=== PATIENT | male | born 1980 | race Two or more races ===

== ENCOUNTER 2024-09-28 15:58 | Emergency (ER) | payer OTHER ==
[~2024-09-28] VITALS: Ht 182.9 cm; Wt 127.6 kg
[2024-09-28] MEDS: ONDANSETRON ODT 4 MG TAB PO ONE (16:45)
[2024-09-28] MEDS: KETOROLAC TROMETH 30 MG/ML 1ML VIAL IM ONE (16:46)
--- NOTE | 2024-09-28 17:01 | DVH ---
Procedure: CT CT AB PEL WO CON-NO ORAL OR IV 09/28/2024 04:16 PM Indication: lower abd pain Comparison Study: None available at time of dictation. Technique: Axial images were obtained and reformatted in coronal and sagittal planes. All CT scans at this medical facility are performed using dose modulation techniques as appropriate t o a performed exam including the following: Automated exposure control was utilized; Adjustment of th e MA And/or KV according to patient size; And use of iterative reconstruction technique. CT Dose: CTDI volume is 23 mGy. Dose-length product is 1517 mGy*cm FINDINGS: Lower Chest: Unremarkable. Hepatobiliary: Hepatomegaly and hepatic steatosis. Spleen: Mild splenomegaly, 12.9 cm in craniocaudal. Pancreas: Unremarkable. Adrenal Glands: Unremarkable. tract: The kidneys are normal in size bilaterally without hydronephrosis or nephrolithiasis. Mild circumferential mural thickening of urinary bladder noted. GI tract: The stomach is grossly normal in appearance. No evidence of small bowel obstruction. Sigmoi d colon diverticulosis. Circumferential mural thickening of sigmoid colon noted with moderate adjace nt fat stranding. Small amount of free fluid is seen in the pelvis. No free intraperitoneal air. Th e appendix is normal. Lymphatics: No mesenteric, retroperitoneal or periportal lymphadenopathy. Vasculature: The abdominal aorta is normal in in caliber. Pelvic Organs: Unremarkable Bones/soft tissues: No acute abnormality. Other: None. IMPRESSION: 1. Sigmoid colitis moderate surrounding inflammation. There is sigmoid diverticulosis but no single i nflamed diverticulum is seen to suggest diverticulitis. Correlate clinically. Small amount of free fl uid is seen in the pelvis. No free intraperitoneal air. 2. Mild circumferential mural thickening of the urinary bladder that could be at least in part due to lack of distention or reflect underlying cystitis. Correlate with urinalysis. 3. Hepatomegaly and hepatic steatosis. 4. Mild splenomegaly.
[2024-09-28 17:07] LABS: Basophils # (auto) 0 10 ^3/uL (0-0.2); Basophils % (auto) 0.2 % (0.0-2.0); Eosinophils # (auto) 0 10 ^3/uL (0-0.8); Eosinophils % (auto) 0.3 % (0.0-7.0); Hematocrit 47.3 % (41.0-53.0); Hemoglobin 16.2 g/dL (13.5-17.5); Lymphocytes # (auto) 2.5 10 ^3/uL (0.4-5.4); Lymphocytes % (auto) 14.7 % (10.0-50.0); Mean Corpuscular Hemoglobin 30.8 pg (28.0-32.0); Mean Corpuscular Hgb Conc. 34.4 g/dL (32.0-36.0); Mean Corpuscular Volume 89.8 fL (80.0-100.0); Monocytes # (auto) 0.8 10 ^3/uL (0-1.3); Monocytes % (auto) 4.7 % (0.0-12.0); Neutrophils # (auto) 13.4 10 ^3/uL (1.6-8.6); Neutrophils % (auto) 80.1 % (37.0-80.0); Nucleated Red Blood Cells % 0.1 %; Platelet Count (auto) 255 10^3/uL (140-450); Red Blood Cells 5.27 10^6/uL (4.5-5.90); Red Cell Distribution Width 12.9 % (11.8-14.3); White Blood Cell 16.7 10^3/uL (4.4-10.8)
[2024-09-28 17:34] LABS: Albumin 4.4 g/dL (3.2-4.8); Alkaline Phosphatase 56 U/L (46-116); Anion Gap 10 (5-15); Aspartate Aminotransferase 27 U/L (13-40); BUN/Creatinine Ratio 12.2 (10.0-20.0); Blood Urea Nitrogen 10 mg/dL (9-23); Carbon Dioxide 26 mmol/L (20-31); Chloride 102 mmol/L (98-107); Lipase 30 U/L (12-53); Potassium 3.9 mmol/L (3.5-5.1); Sodium 138 mmol/L (136-145)
[2024-09-28 17:35] LABS: Total Protein 7.1 g/dL (5.7-8.2)
[2024-09-28 17:38] LABS: Alanine Aminotransferase 44 U/L (7-40); Bilirubin, Total 1.4 mg/dL (0.2-1.0); Glucose 137 mg/dL (74-106)
--- NOTE | 2024-09-28 19:46 | ED.PDOC ---
GI ASSESSMENT HPI Comments 44-year-old male complaining of lower abdominal pain which started this morning. States approximate 2 hours ago he started having more intense sharp pain across his lower abdomen. No vomiting no diarrhea. Nothing makes it better, nothing makes it worse. No fevers. Chief Complaint: Abdominal Pain Time Seen by MD: 16:09 Primary Care Provider: ALEKSANDRA Hernandez Notes: Nurses Notes Allergies: Coded Allergies: NO KNOWN ALLERGIES (Unverified , 09/28/24) Information Source: Patient Mode of Arrival: Ambulatory Past Medical History PAST MEDICAL HISTORY: Denies Surgical History: Denies all surgeries Constitutional: denies: chills, diaphoresis, fatigue, fever, malaise, sweats, weakness, others EENTM: denies: blurred vision, double vision, ear bleeding, ear discharge, ear drainage, ear pain, ear ringing, eye pain, eye redness, hearing loss, mouth pain, mouth swelling, nasal discharge, nose bleeding, nose congestion, nose pain, photophobia, tearing, throat pain, throat swelling, voice changes, others Respiratory: denies: cough, hemoptysis, orthopnea, SOB at rest, shortness of breath, SOB with excertion, stridor, wheezing, others Cardiovascular: denies: chest pain, dizzy spells, diaphoresis, Dyspnea on exertion, edema, irregular heart beat, left arm pain, lightheadedness, palpitations, PND, syncope, others Gastrointestinal: reports: abdominal pain, nausea; denies: abdomen distended, blood streaked bowels, constipated, diarrhea, dysphagia, difficulty swallowing, hematemesis, melena, poor appetite, poor fluid intake, rectal bleeding, rectal pain, vomiting, others Genitourinary: denies: burning, dysuria, flank pain, frequency, hematuria, incontinence, penile discharge, penile sore, pain, testicle pain, testicle swelling, urgency, others Neurological: denies: dizziness, fainting, headache, left sided numbness, left sided weakness, numbness, paresthesia, pre-existing deficit, right sided numbness, right sided weakness, seizure, speech problems, tingling, tremors, weakness, others Musculoskeletal: denies: back pain, gout, joint pain, joint swelling, muscle pain, muscle stiffness, neck pain, others Integumetry: denies: bruises, change in color, change in hair/nails, dryness, laceration, lesions, lumps, rash, wounds, others Allergic/Immunocompromised: denies: Difficulty Healing, Frequent Infections, Hives, Itching, others Hematologic/Lymphatic: denies: anemia, blood clots, easy bleeding, easy bruising, swollen glands, others Physical Exam General Appearance: No Apparent Distress, Normal HEENT: Normal ENT Inspection, Pharynx Normal, TMs Normal Neck: Full Range of Motion, Non-Tender, Normal, Normal Inspection Respiratory: Chest Non-Tender, Lungs Clear, No Accessory Muscle Use, No Respiratory Distress, Normal Breath Sounds Cardiovascular: No Edema, No JVD, No Murmur, No Gallop, Normal Peripheral Pulses, Regular Rate/Rhythm Breast Exam: Deferred Gastrointestinal: Diffuse (Diffuse lower abdominal tenderness), No Organomegaly, Normal Bowel Sounds, Soft Genitalia: Deferred Pelvic: Deferred Rectal: Deferred Extremities: No calf tenderness, Normal capillary refill, Normal inspection, Normal range of motion, Non-tender, No pedal edema Musculoskeletal : Apperance: Normal Neurologic: Alert, mail distributor II-XII nml as Tested, No Motor Deficits, Normal Affect, Normal Mood, No Sensory Deficits Cerebellar Function: Normal Reflexes: Normal Skin: Dry, Normal Color, Warm Lymphatic: No Adenopathy Was a procedure done? Was a procedure done?: No GI differential Dx Differential Diagnosis: Appendicitis, Angina/MO, Bowel Obstruction, Gastritis/PUD, Gastroenteritis, GI hemorrhage X-Ray, Labs, Meds, VS Vital Signs Date Time Temp Pulse Resp B/P (MAP) Pulse Ox O2 Delivery O2 Flow Rate FiO2 09/28/24 16:54 98.9 100 18 146/92 (110) 98 98.9 09/28/24 16:54 100 18 98 Room Air 09/28/24 16:10 97.0 99 18 142/83 (102) 97 Lab Test 09/28/24 16:42 Range/Units White Blood Count 16.7 H 4.4-10.8 10^3/uL Red Blood Count 5.27 4.5-5.90 10^6/uL Hemoglobin 16.2 13.5-17.5 g/dL Hematocrit 47.3 41.0-53.0 % Mean Corpuscular Volume 89.8 80.0-100.0 fL Mean Corpuscular Hemoglobin 30.8 28.0-32.0 pg Mean Corpuscular Hemoglobin Concent 34.4 32.0-36.0 g/dL Red Cell Distribution Width 12.9 11.8-14.3 % Platelet Count 255 140-450 10^3/uL Mean Platelet Volume 7.7 6.9-10.8 fL Neutrophils (%) (Auto) 80.1 H 37.0-80.0 % Lymphocytes (%) (Auto) 14.7 10.0-50.0 % Monocytes (%) (Auto) 4.7 0.0-12.0 % Eosinophils (%) (Auto) 0.3 0.0-7.0 % Basophils (%) (Auto) 0.2 0.0-2.0 % Neutrophils # (Auto) 13.4 H 1.6-8.6 10 ^3/uL Lymphocytes # (Auto) 2.5 0.4-5.4 10 ^3/uL Monocytes # (Auto) 0.8 0-1.3 10 ^3/uL Eosinophils # (Auto) 0 0-0.8 10 ^3/uL Basophils # (Auto) 0 0-0.2 10 ^3/uL Nucleated Red Blood Cells 0.1 % Sodium Level 138 136-145 mmol/L Potassium Level 3.9 3.5-5.1 mmol/L Chloride Level 102 98-107 mmol/L Carbon Dioxide Level 26 20-31 mmol/L Anion Gap 10 5-15 Blood Urea Nitrogen 10 9-23 mg/dL Creatinine 0.82 0.700-1.30 mg/dL Glomerular Filtration Rate Calc 112 >90 mL/min BUN/Creatinine Ratio 12.2 10.0-20.0 Serum Glucose 137 H 74-106 mg/dL Calcium Level 10.0 8.7-10.4 mg/dL Total Bilirubin 1.4 H 0.2-1.0 mg/dL Aspartate Amino Transferase (AST) 27 13-40 U/L Alanine Aminotransferase (ALT) 44 H 7-40 U/L Alkaline Phosphatase 56 46-116 U/L Total Protein 7.1 5.7-8.2 g/dL Albumin 4.4 3.2-4.8 g/dL Lipase 30 12-53 U/L Current Medications Medications (Trade) Dose Ordered Sig/Yolanda Route Start Time Stop Time Status Last Admin Ketorolac Tromethamine (Toradol Injection) 30 mg ONCE ONCE IM 09/28/24 16:15 09/28/24 16:16 DC 09/28/24 16:46 Ondansetron HCl (Zofran Po) 4 mg ONCE ONCE PO 09/28/24 16:15 09/28/24 16:16 DC 09/28/24 16:45 X-Ray, Labs, Meds, VS Comment Imaging: X-rays and CT scans were reviewed and interpreted by this provider, diverticulosis present on CT scan. Pending radiology review. Laboratory: Labs reviewed and interpreted by this provider. Elevated white count Patient has prior medical visits reviewed. Med reconciliation performed Vital signs reviewed Patient will be treated for diverticulosis/diverticulitis. Started on Flagyl and Bactrim. Time of 1ST Reevaluation: 19:58 Reevaluation 1ST: Improved Patient Education/Counseling: Diagnosis, Treatment, Need For Follow Up (Patient advised to follow-up in the emergency room in the next 24 to 48 hours if symp toms do not improve. Advised follow-up with PCP in the next 3 to 5 days. Patient verbalized understanding. ) Family Education/Counseling: Diagnosis Departure 1 Departure Time of Disposition: 19:55 Impression: Primary Impression: Diverticulitis of intestine Qualified Codes: K57.32 - Diverticulitis of large intestine without perforation or abscess without bleeding Disposition: 01 HOME / SELF CARE / HOMELESS Condition: Fair e-Prescriptions Sulfamethoxazole W/Trimethopri (Bactrim Ds Tablet) 1 Tab Tb 1 TAB PO BID for 10 Days, #20 TAB Prov: SALAS PIKE 09/28/24 Metronidazole (Flagyl) 500 Mg Tab 1 TAB PO BID for 7 Days, #14 TAB Prov: SALAS PIKE 09/28/24 Discharged With: Self Critical Care Note Critical Care Time?: No Stability Stability form required: No Heart Score Heart Score: Heart Score Response (Comments) Value History N/A 0 EKG N/A 0 Age N/A 0 Risk Factors N/A 0 Troponin N/A 0 Total 0 SALAS PIKE Sep 28, 2024 19:46
[2024-09-28] MEDS ORDERED: BACDST PO (19:58)
[2024-09-28] MEDS ORDERED: METR-344 PO (19:58)
[2024-09-28 20:46] VITALS: BP 158/91; PULSE 127; RESP 18; TEMP 99.9; O2SAT 99
[2024-09-28] MEDS: HYDROcodone-ACET 5/325MG TAB PO ONE (21:23)
== END 2024-09-28 21:36 | disposition home or self-care (01) ==
LOC: ER 15:58
DX: K57.32 Diverticulitis of large intestine without perforation or abscess without bleeding (principal)
CPT/HCPCS: 36415; 74176; 80053; 83690; 85025; 96372; 99285; J1885; Q0162